=== PATIENT | female | born 1935 | race Caucasian/White ===

== ENCOUNTER 2017-03-02 05:30 | Emergency (ER) | payer MEDICARE, BC ==
[2017-03-02 06:40] LABS: BASOPHILS % (AUTO) 0 % (0-3); EOSINOPHILS % (AUTO) 1 % (0-9); HEMATOCRIT 30 % (35-47); MEAN CORPUSCULAR VOLUME 93 fL (81-99); MONOCYTES % (AUTO) 8.6 % (0-12); NEUTROPHILS % (AUTO) 64.8 % (37-80)
[2017-03-02 06:46] VITALS: TEMP 98.7
[2017-03-02 06:51] LABS: ALBUMIN 3.1 gm/dl (3.4-5.0); CALCIUM 8.6 mg/dl (8.5-10.1); THYROID STIMULATING HORMONE 2.092 uIU/ml (0.358-3.740)
[2017-03-02 07:10] LABS: APPEARANCE,URINE Clear; BILIRUBIN,URINE NEGATIVE (NEGATIVE); COLOR,URINE Yellow; GLUCOSE, URINE (UA) NEGATIVE (NEGATIVE); KETONES,URINE NEGATIVE (NEGATIVE); LEUKOCYTE ESTERASE ,URINE 1+ (NEGATIVE); NITRATE,URINE NEGATIVE (NEGATIVE); OCCULT BLOOD,URINE NEGATIVE (NEG-TRACE); PH,URINE 5.5; UROBILINOGEN,URINE 0.2 (0.2-1.0 EU)
[2017-03-02 07:34] LABS: RBC,URINE 0-2 (0-3AV/HPF)
[2017-03-02 08:08] VITALS: BP 176/81; PULSE 101; RESP 16; O2SAT 90
== END 2017-03-02 07:50 | disposition home or self-care (01) | DRG 605 ==
LOC: ED 05:30
DX: S00.81XA Abrasion of other part of head, initial encounter (principal); D53.9 Nutritional anemia, unspecified; W19.XXXA Unspecified fall, initial encounter; S81.002D Unspecified open wound, left knee, subsequent encounter; S91.301D Unspecified open wound, right foot, subsequent encounter; N18.9 Chronic kidney disease, unspecified
CPT/HCPCS: 36415; 70450; 80053; 80307; 81001; 84443; 85025; 93005; 99284; 99285; A6232; A6446

== ENCOUNTER 2017-03-21 11:56 | Emergency (ER) | payer MEDICARE, BC ==
[2017-03-21] MEDS ORDERED: SODIUM CHLORIDE 0.9% 1000 ML SOL IV ONE (12:03)
[2017-03-21 12:23] LABS: HEMATOCRIT 30 % (35-47); MEAN CORPUSCULAR HGB CONC 34.4 gm/dl (32.0-36.0); MEAN CORPUSCULAR VOLUME 92 fL (81-99)
[2017-03-21 12:35] LABS: ALBUMIN 3.5 gm/dl (3.4-5.0); POTASSIUM 3.6 mMol/L (3.5-5.1)
[2017-03-21 12:47] VITALS: TEMP 99.4
[2017-03-21 12:49] LABS: BASOPHILS % (MANUAL) 0 % (0-3); EOSINOPHILS % (MANUAL) 1 % (0-9); LYMPHOCYTES % (MANUAL) 20 % (10-50); NORMAL RBCS PRESENT
[2017-03-21 14:31] LABS: APPEARANCE,URINE Clear; BILIRUBIN,URINE 1+ (NEGATIVE); COLOR,URINE Yellow; GLUCOSE, URINE (UA) NEGATIVE (NEGATIVE); KETONES,URINE 1+ (NEGATIVE); LEUKOCYTE ESTERASE ,URINE 1+ (NEGATIVE); NITRATE,URINE NEGATIVE (NEGATIVE); OCCULT BLOOD,URINE NEGATIVE (NEG-TRACE); PH,URINE 5.5; UROBILINOGEN,URINE 0.2 (0.2-1.0 EU)
[2017-03-21 14:37] LABS: ICTOTEST,URINE NEGATIVE (NEGATIVE); RBC,URINE 0-2 (0-3AV/HPF); WBC,URINE 15-20 (0-5AV/HPF)
[2017-03-21 16:26] VITALS: BP 87/33; PULSE 75; RESP 18; O2SAT 94
== END 2017-03-21 16:00 | disposition home or self-care (01) | DRG 690 ==
LOC: ED 11:56
DX: N39.0 Urinary tract infection, site not specified (principal); I48.91 Unspecified atrial fibrillation
CPT/HCPCS: 36415; 70450; 71010; 80053; 81001; 82550; 84484; 85007; 85027; 85610; 87088; 93005; 96365; 99283; 99285; G0168; A6232; A6402

== ENCOUNTER 2017-03-31 20:37 | Emergency (ER) | payer MEDICARE, BC ==
[2017-03-31 20:37] VITALS: O2SAT 94
[2017-03-31 20:57] VITALS: BP 132/64; PULSE 74; RESP 18; TEMP 98.5
== END 2017-03-31 21:36 | disposition home or self-care (01) | DRG 951 ==
LOC: ED 20:37
DX: Z53.29 Procedure and treatment not carried out because of patient's decision for other reasons (principal)
CPT/HCPCS: 99282

== ENCOUNTER 2017-05-17 02:45 | Emergency (ER) | payer MEDICARE, BC ==
[2017-05-17 02:50] VITALS: TEMP 98.6
[2017-05-17] MEDS ORDERED: DILTIAZEM 5 MG/ML SOL IV ONE ×2 (02:59→03:01)
[2017-05-17] MEDS ORDERED: SODIUM CHLORIDE 0.9% FLUSH 10 ML SOL IV PRN (03:10)
[2017-05-17] MEDS ORDERED: SODIUM CHLORIDE 0.9% 1000ML 1,000 ML IV ONE (03:11)
[2017-05-17 03:20] LABS: BASOPHILS % (AUTO) 1 % (0-3); EOSINOPHILS % (AUTO) 0 % (0-9); HEMATOCRIT 21 % (35-47); MEAN CORPUSCULAR HGB CONC 33.9 gm/dl (32.0-36.0); MONOCYTES % (AUTO) 7.3 % (0-12)
[2017-05-17 03:35] LABS: ALBUMIN 3.2 gm/dl (3.4-5.0); CALCIUM 8.5 mg/dl (8.5-10.1)
[2017-05-17 03:40] LABS: MEAN CORPUSCULAR VOLUME 105 fL (81-99)
[2017-05-17 04:46] VITALS: BP 107/71
[2017-05-17 04:47] VITALS: PULSE 175; RESP 20; O2SAT 82
== END 2017-05-17 04:05 | disposition short-term general hospital (02) | DRG 310 ==
LOC: ED 02:45
DX: I48.91 Unspecified atrial fibrillation (principal); Z99.81 Dependence on supplemental oxygen; I95.9 Hypotension, unspecified; D64.9 Anemia, unspecified; J44.9 Chronic obstructive pulmonary disease, unspecified; I45.19 Other right bundle-branch block; R41.0 Disorientation, unspecified; R06.02 Shortness of breath
CPT/HCPCS: 36415; 71010; 80053; 83880; 84484; 85025; 85610; 93005; 99291

== ENCOUNTER 2017-05-29 09:42 | Emergency (ER) | payer MEDICARE, BC ==
[2017-05-29 10:11] VITALS: RESP 18; TEMP 98.6
[2017-05-29 10:44] LABS: BASOPHILS % (AUTO) 0 % (0-3); EOSINOPHILS % (AUTO) 1 % (0-9); HEMATOCRIT 25 % (35-47); MEAN CORPUSCULAR VOLUME 100 fL (81-99); MONOCYTES % (AUTO) 5.4 % (0-12); NEUTROPHILS % (AUTO) 85.3 % (37-80)
[2017-05-29] MEDS ORDERED: APAP/HYDROCODONE 325/5 TAB PO ONE (11:04)
[2017-05-29] MEDS ORDERED: APAP/HYDROCODONE 325/5 TAB ONE (11:05)
[2017-05-29 11:35] VITALS: BP 99/64; PULSE 120; O2SAT 95
== END 2017-05-29 11:06 | DRG 552 ==
LOC: ED 09:42
DX: S32.018A Other fracture of first lumbar vertebra, initial encounter for closed fracture (principal); W01.0XXA Fall on same level from slipping, tripping and stumbling without subsequent striking against object, initial encounter
CPT/HCPCS: 36415; 72120; 72170; 85025; 99282; 99283

== ENCOUNTER 2017-06-15 13:02 | Outpatient (CLI) | payer MEDICARE, BC ==
[2017-05-29 16:06] VITALS: O2SAT 92
== END 2017-06-15 13:03 | disposition home or self-care (01) | DRG 561 ==
LOC: CONVCARE 13:02
PROVIDERS: ATTEND Orthopaedic Surgery
DX: S32.010D Wedge compression fracture of first lumbar vertebra, subsequent encounter for fracture with routine healing (principal)
CPT/HCPCS: 72120

== ENCOUNTER 2018-05-14 07:47 | Emergency (ER) | payer MEDICARE, BC ==
[2018-05-14] MEDS ORDERED: ALBUTEROL/IPRATROPIUM 1 VIAL SOL INH ONE (08:06)
[2018-05-14] MEDS ORDERED: ALBUTEROL/IPRATROPIUM 1 VIAL SOL ONE (08:09)
[2018-05-14 08:29] LABS: HEMATOCRIT 38 % (35-47); HEMOGLOBIN 12.7 gm/dl (12.0-15.5); MEAN CORPUSCULAR HEMOGLOBIN 33.2 pg (27.0-32.0); MEAN CORPUSCULAR HGB CONC 33.4 gm/dl (32.0-36.0)
[2018-05-14 08:32] LABS: MEAN CORPUSCULAR VOLUME 99 fL (81-99)
[2018-05-14 08:37] LABS: ALBUMIN 3.3 gm/dl (3.4-5.0); BILIRUBIN,TOTAL 0.6 mg/dl (0.2-1.0); CALCIUM 8.5 mg/dl (8.5-10.1); CREATININE 1.71 mg/dl (0.60-1.00); POTASSIUM 3.3 mMol/L (3.5-5.1); TOTAL PROTEIN 6.4 gm/dl (6.4-8.2)
[2018-05-14 08:41] LABS: CARBON DIOXIDE 38.9 mEq/L (21-32)
[2018-05-14 08:48] LABS: BAND NEUTROPHILS % (MANUAL) 2 %; EOSINOPHILS % (MANUAL) 0 % (0-9); LYMPHOCYTES % (MANUAL) 3 % (10-50); MONOCYTES % (MANUAL) 3 % (0-12); NEUTROPHILS % (MANUAL) 92 % (37-80)
[2018-05-14 08:49] LABS: ANISOCYTOSIS SLIGHT AMT
[2018-05-14 09:11] VITALS: O2SAT 96
[2018-05-14 09:29] VITALS: TEMP 98.1
[2018-05-14] MEDS ORDERED: ALPRAZOLAM 0.25 MG TAB PO ONE (09:38)
[2018-05-14] MEDS ORDERED: ALPRAZOLAM 0.25 MG TAB ONE (09:42)
[2018-05-14] MEDS ORDERED: FUROSEMIDE 40 MG TAB PO ONE ×2 (10:20→10:22)
[2018-05-14] MEDS ORDERED: FUROSEMIDE 40 MG TAB ONE (10:22)
[2018-05-14 10:58] VITALS: BP 96/59; PULSE 130; RESP 28
[2018-05-14 15:46] LABS: BASOPHILS % (MANUAL) 0 % (0-3)
== END 2018-05-14 10:40 | DRG 293 ==
LOC: ED 07:47
DX: I11.0 Hypertensive heart disease with heart failure (principal); I50.9 Heart failure, unspecified; J44.9 Chronic obstructive pulmonary disease, unspecified
CPT/HCPCS: 36415; 71045; 80053; 83880; 85007; 85027; 99284; A9270; A9270-GY

== ENCOUNTER 2018-07-15 09:55 | Emergency (ER) | payer MEDICARE, BC ==
[2018-07-15 10:19] VITALS: BP 104/52; RESP 22; TEMP 98.2; O2SAT 97
[2018-07-15 11:13] LABS: BASOPHILS % (AUTO) 1 % (0-3); EOSINOPHILS % (AUTO) 1 % (0-9); HEMATOCRIT 42 % (35-47); HEMOGLOBIN 14.2 gm/dl (12.0-15.5); LYMPHOCYTES % (AUTO) 22.1 % (10-50); MEAN CORPUSCULAR HEMOGLOBIN 33.1 pg (27.0-32.0); MEAN CORPUSCULAR HGB CONC 33.8 gm/dl (32.0-36.0); MEAN CORPUSCULAR VOLUME 98 fL (81-99); MONOCYTES % (AUTO) 6.9 % (0-12); NEUTROPHILS % (AUTO) 69.3 % (37-80)
[2018-07-15 11:15] LABS: ALBUMIN 3.2 gm/dl (3.4-5.0); BILIRUBIN,TOTAL 0.6 mg/dl (0.2-1.0); CALCIUM 9.4 mg/dl (8.5-10.1); CARBON DIOXIDE 38.3 mEq/L (21-32); CREATININE 1.91 mg/dl (0.60-1.00); POTASSIUM 3.2 mMol/L (3.5-5.1)
[2018-07-15 11:54] LABS: APPEARANCE,URINE Slightly Cloudy; BILIRUBIN,URINE NEGATIVE (NEGATIVE); COLOR,URINE Yellow; GLUCOSE, URINE (UA) NEGATIVE (NEGATIVE); KETONES,URINE NEGATIVE (NEGATIVE); LEUKOCYTE ESTERASE ,URINE 3+ (NEGATIVE); NITRATE,URINE NEGATIVE (NEGATIVE); OCCULT BLOOD,URINE TRACE INTACT (NEG-TRACE); UROBILINOGEN,URINE 0.2 (0.2-1.0 EU)
[2018-07-15 12:03] LABS: BACTERIA 2+ (< 1+); CRYSTALS NEGATIVE (0-3 AVE/HPF); RBC,URINE 0-3 (0-3AV/HPF); WBC,URINE 95-100 (0-5AV/HPF)
[2018-07-15 15:47] VITALS: PULSE 109
== END 2018-07-15 14:05 | DRG 184 ==
LOC: ED 09:55
DX: S22.42XA Multiple fractures of ribs, left side, initial encounter for closed fracture (principal); N30.00 Acute cystitis without hematuria; B96.1 Klebsiella pneumoniae [K. pneumoniae] as the cause of diseases classified elsewhere
CPT/HCPCS: 36415; 70450; 71101; 73030; 80053; 81001; 85025; 87077; 87088; 87186; 99284; G0390

== ENCOUNTER 2018-07-23 11:27 | Inpatient (IN) | payer MEDICARE, BC ==
[2018-07-23 10:29] LABS: HEMOGLOBIN 13.7 gm/dl (12.0-15.5); MEAN CORPUSCULAR HGB CONC 35.7 gm/dl (32.0-36.0)
[2018-07-23 10:36] LABS: ALBUMIN 2.7 gm/dl (3.4-5.0); BILIRUBIN,TOTAL 0.7 mg/dl (0.2-1.0); CALCIUM 9.5 mg/dl (8.5-10.1); CARBON DIOXIDE 35.9 mEq/L (21-32); CREATININE 3.1 mg/dl (0.60-1.00)
[2018-07-23 10:45] LABS: POTASSIUM 2.2 mMol/L (3.5-5.1)
[2018-07-23 10:50] LABS: MEAN CORPUSCULAR HEMOGLOBIN 34.1 pg (27.0-32.0)
[2018-07-23] MEDS: SODIUM CHLORIDE 0.9% FLUSH 10 ML SOL IV SCH ×2 (11:40→19:50)
[2018-07-23] MEDS ORDERED: SODIUM CHLORIDE/KCL 20MEQ 1,000 ML IV ONE (11:54)
[2018-07-23] MEDS ORDERED: POTASSIUM CHLORIDE 2 MEQ/ML SOL IV ONE ×3 (12:03→21:53)
[2018-07-23] MEDS ORDERED: SODIUM CHLORIDE 0.9% 500 ML 500 ML IV ONE ×2 (12:17)
[2018-07-23] MEDS ORDERED: POTASSIUM CHLORIDE 2 MEQ/ML 40 MEQ, LIDOCAINE HCL 1% MDV 2 ML in SODIUM CHLORIDE 0.9% 5... IV ONE (13:10)
[2018-07-23 13:19] LABS: APPEARANCE,URINE Clear; BILIRUBIN,URINE 1+ (NEGATIVE); COLOR,URINE Yellow; GLUCOSE, URINE (UA) NEGATIVE (NEGATIVE); KETONES,URINE NEGATIVE (NEGATIVE); LEUKOCYTE ESTERASE ,URINE TRACE (NEGATIVE); NITRATE,URINE NEGATIVE (NEGATIVE); OCCULT BLOOD,URINE NEGATIVE (NEG-TRACE); PH,URINE 5.5; UROBILINOGEN,URINE 0.2 (0.2-1.0 EU)
[2018-07-23 13:33] LABS: BACTERIA NEGATIVE (< 1+); CRYSTALS NEGATIVE (0-3 AVE/HPF); EPITHELIAL CELLS 0-1 (SQUAMOUS); ICTOTEST,URINE NEGATIVE (NEGATIVE); RBC,URINE NEG (0-3AV/HPF); WBC,URINE 0-2 (0-5AV/HPF)
[2018-07-23] MEDS ORDERED: LIDOCAINE HCL 1% MPF 30 SOL ONE (14:48)
[2018-07-23] MEDS: METOCLOPRAMIDE HYDROCHLORIDE 5 MG TAB PO SCH (16:45)
[2018-07-23] MEDS ORDERED: ALPRAZOLAM 0.25 MG TAB PO PRN (18:14)
[2018-07-23] MEDS ORDERED: ACETAMINOPHEN 325 MG PO PRN (18:17)
[2018-07-23] MEDS: SODIUM CHLORIDE 0.9% 1000ML 1,000 ML IV SCH (20:17)
[2018-07-23] MEDS: TRAMADOL HYDROCHLORIDE 50 MG TAB PO SCH (20:19)
[2018-07-23 21:20] LABS: CALCIUM 8.6 mg/dl (8.5-10.1); CARBON DIOXIDE 31.8 mEq/L (21-32); CREATININE 2.72 mg/dl (0.60-1.00)
[2018-07-23 21:21] LABS: POTASSIUM 2.8 mMol/L (3.5-5.1)
[2018-07-23] MEDS ORDERED: POTASSIUM CHLORIDE 2 MEQ/ML 60 MEQ, LIDOCAINE HCL 1% MDV 2 ML in SODIUM CHLORIDE 0.9% 1... IV ONE (21:26)
[2018-07-24] MEDS ORDERED: DILTIAZEM 5 MG/ML SOL IV ONE (00:19)
[2018-07-24] MEDS ORDERED: SODIUM CHLORIDE 0.9% 500 ML 500 ML IV ONE ×2 (00:23→09:15)
[2018-07-24] MEDS: LEVOTHYROXINE SODIUM 50 MCG TAB PO SCH (04:13)
[2018-07-24] MEDS: SODIUM CHLORIDE 0.9% 1000ML 1,000 ML IV SCH ×2 (06:19→15:11)
[2018-07-24] MEDS: SODIUM CHLORIDE 0.9% FLUSH 10 ML SOL IV SCH ×4 (06:19→20:56)
[2018-07-24] MEDS: PANTOPRAZOLE SODIUM 40 MG ECT PO SCH (06:22)
[2018-07-24 07:25] LABS: BASOPHILS % (AUTO) 0 % (0-3); EOSINOPHILS % (AUTO) 1 % (0-9); HEMATOCRIT 31 % (35-47); HEMOGLOBIN 10.9 gm/dl (12.0-15.5); MEAN CORPUSCULAR HEMOGLOBIN 33.7 pg (27.0-32.0); MEAN CORPUSCULAR HGB CONC 35.3 gm/dl (32.0-36.0); MEAN CORPUSCULAR VOLUME 95 fL (81-99); MONOCYTES % (AUTO) 6.8 % (0-12); NEUTROPHILS % (AUTO) 79.3 % (37-80)
[2018-07-24 07:45] LABS: BILIRUBIN,TOTAL 0.7 mg/dl (0.2-1.0); CALCIUM 8.3 mg/dl (8.5-10.1); CARBON DIOXIDE 28.8 mEq/L (21-32); CREATININE 2.47 mg/dl (0.60-1.00); MAGNESIUM 1.8 mg/dl (1.8-2.4); POTASSIUM 3.3 mMol/L (3.5-5.1); TOTAL PROTEIN 5.5 gm/dl (6.4-8.2)
[2018-07-24] MEDS ORDERED: HALOPERIDOL LACTATE 5 MG/ML SOL IM PRN (07:59)
[2018-07-24] MEDS ORDERED: DIGOXIN 0.25 MG/ML SOL IV ONE (08:00)
[2018-07-24] MEDS: METOCLOPRAMIDE HYDROCHLORIDE 5 MG TAB PO SCH ×3 (08:24→17:09)
[2018-07-24] MEDS: SERTRALINE HYDROCHLORIDE 50 MG TAB PO SCH (08:33)
[2018-07-24] MEDS: BUDESONIDE 3 MG ECC PO SCH (08:34)
[2018-07-24] MEDS ORDERED: DILTIAZEM ER 120 MG C24 PO SCH (09:00)
[2018-07-24] MEDS ORDERED: METOPROLOL SUCCINATE 50 MG TER PO SCH (09:00)
[2018-07-24] MEDS: TRAMADOL HYDROCHLORIDE 50 MG TAB PO SCH ×5 (10:09→20:52)
[2018-07-24] MEDS ORDERED: POTASSIUM CHLORIDE 2 MEQ/ML 30 MEQ, LIDOCAINE HCL 1% MDV 2 ML in SODIUM CHLORIDE 0.9% 5... IV ONE (15:52)
[2018-07-24] MEDS ORDERED: POTASSIUM CHLORIDE 2 MEQ/ML SOL IV ONE (16:24)
[2018-07-24] MEDS ORDERED: LIDOCAINE HCL 1% MPF 30 SOL ONE (16:34)
[2018-07-25] MEDS: SODIUM CHLORIDE 0.9% 1000ML 1,000 ML IV SCH (02:33)
[2018-07-25] MEDS: SODIUM CHLORIDE 0.9% FLUSH 10 ML SOL IV SCH ×4 (05:39→13:12)
[2018-07-25] MEDS: LEVOTHYROXINE SODIUM 50 MCG TAB PO SCH (05:40)
[2018-07-25] MEDS: PANTOPRAZOLE SODIUM 40 MG ECT PO SCH (06:11)
[2018-07-25] MEDS: METOCLOPRAMIDE HYDROCHLORIDE 5 MG TAB PO SCH ×3 (08:54→17:21)
[2018-07-25] MEDS: BUDESONIDE 3 MG ECC PO SCH (08:55)
[2018-07-25] MEDS: TRAMADOL HYDROCHLORIDE 50 MG TAB PO SCH ×3 (08:55→20:00)
[2018-07-25] MEDS: SERTRALINE HYDROCHLORIDE 50 MG TAB PO SCH (08:56)
[2018-07-25] MEDS ORDERED: FUROSEMIDE 100 MG SOL IV ONE (09:00)
[2018-07-25] MEDS ORDERED: DIGOXIN 0.125 MG TAB PO SCH (09:00)
[2018-07-25] MEDS ORDERED: DIGOXIN 0.25 MG/ML SOL IV SCH (09:00)
[2018-07-25] MEDS ORDERED: POTASSIUM CHLORIDE 10 MEQ TER PO ONE (10:00)
[2018-07-25] MEDS: DIGOXIN 0.125 MG TAB PO SCH (13:33)
[2018-07-25] MEDS: ALBUTEROL NEB SOL 2.5MG/3ML 1 VIAL SOL INH PRN (19:53)
[2018-07-26] MEDS: LEVOTHYROXINE SODIUM 50 MCG TAB PO SCH (06:01)
[2018-07-26] MEDS: PANTOPRAZOLE SODIUM 40 MG ECT PO SCH (06:01)
[2018-07-26] MEDS: ALBUTEROL NEB SOL 2.5MG/3ML 1 VIAL SOL INH PRN ×2 (07:00→20:50)
[2018-07-26 07:18] LABS: BASOPHILS % (AUTO) 1 % (0-3); EOSINOPHILS % (AUTO) 2 % (0-9); HEMATOCRIT 30 % (35-47); HEMOGLOBIN 10.4 gm/dl (12.0-15.5); LYMPHOCYTES % (AUTO) 16.4 % (10-50); MEAN CORPUSCULAR HEMOGLOBIN 33.2 pg (27.0-32.0); MEAN CORPUSCULAR HGB CONC 34.2 gm/dl (32.0-36.0); MEAN CORPUSCULAR VOLUME 97 fL (81-99); MONOCYTES % (AUTO) 6.4 % (0-12); NEUTROPHILS % (AUTO) 75.1 % (37-80)
[2018-07-26 07:19] LABS: CARBON DIOXIDE 26.1 mEq/L (21-32); CREATININE 1.24 mg/dl (0.60-1.00); POTASSIUM 3.5 mMol/L (3.5-5.1)
[2018-07-26] MEDS: DIGOXIN 0.125 MG TAB PO SCH (09:22)
[2018-07-26] MEDS: BUDESONIDE 3 MG ECC PO SCH (09:22)
[2018-07-26] MEDS: METOCLOPRAMIDE HYDROCHLORIDE 5 MG TAB PO SCH ×3 (09:22→17:09)
[2018-07-26] MEDS: TRAMADOL HYDROCHLORIDE 50 MG TAB PO SCH ×3 (09:23→20:50)
[2018-07-26] MEDS: SERTRALINE HYDROCHLORIDE 50 MG TAB PO SCH (09:23)
[2018-07-26 11:39] VITALS: BP 81/68
[2018-07-26] MEDS: FUROSEMIDE 40 MG TAB PO SCH (12:23)
[2018-07-26] MEDS ORDERED: ONDANSETRON 4 MG ODT BU PRN (21:02)
[2018-07-27 05:04] VITALS: PULSE 92; RESP 16; TEMP 98.3; O2SAT 94
[2018-07-27] MEDS: LEVOTHYROXINE SODIUM 50 MCG TAB PO SCH (05:38)
[2018-07-27] MEDS: PANTOPRAZOLE SODIUM 40 MG ECT PO SCH (06:49)
[2018-07-27 07:29] LABS: CALCIUM 9.2 mg/dl (8.5-10.1); CARBON DIOXIDE 29.4 mEq/L (21-32); CREATININE 1.26 mg/dl (0.60-1.00); DIGOXIN 1.7 ng/ml (0.9-2.0)
[2018-07-27] MEDS: SERTRALINE HYDROCHLORIDE 50 MG TAB PO SCH (10:01)
[2018-07-27] MEDS: METOCLOPRAMIDE HYDROCHLORIDE 5 MG TAB PO SCH (10:01)
[2018-07-27] MEDS: BUDESONIDE 3 MG ECC PO SCH (10:01)
[2018-07-27] MEDS: TRAMADOL HYDROCHLORIDE 50 MG TAB PO SCH (10:02)
[2018-07-27] MEDS: DIGOXIN 0.125 MG TAB PO SCH (10:29)
[2018-07-27] MEDS: FUROSEMIDE 40 MG TAB PO SCH (10:29)
== END 2018-07-27 11:20 | DRG 640 ==
LOC: ED 11:27 → UNDOADMIN 13:07 → ACUTE CARE 13:07
PROVIDERS: ADMIT Family Medicine; ATTEND Family Medicine
DX: E87.6 Hypokalemia (principal); D64.9 Anemia, unspecified; I63.432 Cerebral infarction due to embolism of left posterior cerebral artery; I10 Essential (primary) hypertension; R29.705 NIHSS score 5; R41.82 Altered mental status, unspecified; R00.0 Tachycardia, unspecified; E86.0 Dehydration; E78.6 Lipoprotein deficiency; R41.0 Disorientation, unspecified; R53.1 Weakness; R32 Unspecified urinary incontinence; R15.9 Full incontinence of feces; H53.9 Unspecified visual disturbance; R43.9 Unspecified disturbances of smell and taste; R79.82 Elevated C-reactive protein (CRP); E78.5 Hyperlipidemia, unspecified; D72.829 Elevated white blood cell count, unspecified; R20.0 Anesthesia of skin; R29.810 Facial weakness; I48.91 Unspecified atrial fibrillation; N19 Unspecified kidney failure; I50.9 Heart failure, unspecified
CPT/HCPCS: 36415; 80048; 80053; 80162; 81001; 83735; 83880; 84132; 85025; 85027; 93012; 94640; 96365; 99232; 99284; 99285; J1160; J1940; J3480; J7613; A6232; A9270; A9270-GY; J2001; J3490